=== PATIENT | female | born 1990 | race African-American/Black ===

== ENCOUNTER 2018-05-05 15:28 | Emergency (ER) | payer OTHER ==
[~2018-05-05] VITALS: Ht 165.1 cm; Wt 61.7 kg
[~2018-05-05 15:28] MED LIST: FOLIC ACID1 MG PO; METHOTREXA25 MG/ML IM; PREDNISONE10 MG
[2018-05-05] MEDS ORDERED: HYDROXYCHLOROQ200 MG (15:59)
== END 2018-05-05 17:58 | disposition home or self-care (01) ==
LOC: ER 15:28
DX: M06.832 Other specified rheumatoid arthritis, left wrist (principal); M06.831 Other specified rheumatoid arthritis, right wrist; M06.862 Other specified rheumatoid arthritis, left knee; M06.861 Other specified rheumatoid arthritis, right knee; M06.872 Other specified rheumatoid arthritis, left ankle and foot; M06.871 Other specified rheumatoid arthritis, right ankle and foot

== ENCOUNTER 2018-10-25 15:55 | Emergency (ER) | payer OTHER ==
[~2018-10-25] VITALS: Ht 165.1 cm; Wt 60.8 kg
[~2018-10-25 15:55] MED LIST changes: +HYDROXYCHLOROQ200 MG
== END 2018-10-25 19:25 | disposition home or self-care (01) ==
LOC: ER 15:55
DX: M79.18 Myalgia, other site (principal)

== ENCOUNTER 2021-12-08 11:12 | Emergency (ER) | payer OTHER ==
[~2021-12-08] VITALS: Ht 165.1 cm; Wt 88.5 kg
== END 2021-12-08 15:59 | disposition home or self-care (01) ==
LOC: ER 11:12
DX: M62.838 Other muscle spasm (principal); Z91.013 Allergy to seafood